=== PATIENT | male | born 1950 | race Hispanic/Latino ===

== ENCOUNTER 2017-02-10 20:20 | Emergency (ER) | payer MEDICARE ==
[2017-02-10] MEDS ORDERED: Albuterol-Ipratrop 3 mg / 0.5 (3 ml) UD ONE ×3 (20:34→22:18)
[2017-02-10] MEDS ORDERED: Aspirin 325 mg EC Tablets PO STA (20:52)
--- NOTE | 2017-02-10 20:52 | C.PDOC ---
History Of Present Illness Pt presents with over the last few days. worsening shortness of breath, productive cough. No chest pain, ,palpitatios, speaking in 2-3 word sentences. Time Seen by Provider: 02/10/17 20:49 Chief Complaint (Nursing): Shortness Of Breath History Per: Patient History/Exam Limitations: no limitations Onset/Duration Of Symptoms: Days Current Symptoms Are (Timing): Worse Initiating Event: Upper Respiratory Illness Exacerbating Factor(s): Coughing Current Respiratory Medications: See Home Med List Severity: Severe Pain Scale Rating Of: 7 Associated Symptoms: Productive Cough. denies: Fever, Chills, Sweating, Chest Pain, Bloody Cough Reports Recently: Treated By A Physician Recent travel outside of the [place]: No Additional History Per: Patient Past Medical History Reviewed: Historical Data, Nursing Documentation, Vital Signs Vital Signs: Last Vital Signs Temp 97.5 F L 02/10/17 20:23 Pulse 93 H 02/10/17 20:23 Resp 12 02/10/17 21:35 BP 185/113 H 02/10/17 20:23 Pulse Ox 93 L 02/10/17 21:35 - Medical History PMH: HTN, Hypercholesterolemia Family History: States: No Known Family Hx - Social History Hx Alcohol Use: Yes Hx Substance Use: No Review Of Systems Constitutional: Negative for: Fever, Chills Eyes: Negative for: Vision Change ENT: Negative for: Throat Pain Cardiovascular: Negative for: Chest Pain Respiratory: Positive for: Cough, Shortness of Breath, SOB with Excertion, Wheezing Gastrointestinal: Negative for: Nausea, Vomiting, Abdominal Pain Genitourinary: Negative for: Dysuria Musculoskeletal: Negative for: Back Pain Skin: Negative for: Rash, Lesions Neurological: Negative for: Weakness Psych: Negative for: Anxiety Physical Exam - Physical Exam Appears: In Acute Distress Skin: Warm, Dry Head: Normacephalic Eye(s): bilateral: Normal Inspection Oral Mucosa: Moist Lips: Normal Appearing Throat: No Erythema, No Exudate Neck: Supple Chest: Symmetrical Cardiovascular: Rhythm Regular Respiratory: Decreased Breath Sounds, No Rales, Rhonchi, Wheezing Gastrointestinal/Abdominal: Soft, No Tenderness, No Distention Back: No CVA Tenderness Male Genital: Normal Inspection Extremity: Normal ROM Extremity: Bilateral: Atraumatic Pulses: Left Dorsalis Pedis: Normal, Right Dorsalis Pedis: Normal Neurological/Psych: Oriented x3, Normal Speech, Normal Cognition Gait: Steady ED Course And Treatment - Laboratory Results Result Diagrams: 02/10/17 21:03 02/10/17 21:03 ECG: Interpreted By Me, Viewed By Me O2 Sat by Pulse Oximetry: 88 Pulse Ox Interpretation: Abnormal - Radiology CXR: Interpreted by Me, Viewed By Me CXR Interpretation: Yes: Other (cabg, ? small rll infiltrate). No: Infiltrates , Fracture, Pnemothorax Progress Note: pt had a pa& lat cxr done today, which I've revied and showed cabg, ? rll infiltrate, no effusion or pneumo. 10:16 PM Pt feels much better. Wants to go home. Not short of breath Reevaluation Time: 22:16 Reassessment Condition: Improved Critical Care Time - Critical Care Note Total Time (in mins): 30 Documented critical care: time excludes all time spent performing seperately billable procedures. Medical Decision Making Medical Decision Making: Upon provider reevaluation patient is feeling better, is medically stable, and requires no further treatment in the ED at this time. Patient will be discharged home with Rx for zithromax and albuterol. Counseling was provided and all questions were answered regarding diagnosis and need for follow up with dr watson. There is agreement to discharge plan. Return if symptoms persist or worsen. Disposition Counseled Patient/Family Regarding: Studies Performed, Diagnosis, Need For Followup, Rx Given - Disposition Referrals: Jose A Abel [Staff Provider] - Disposition: HOME/ ROUTINE Disposition Time: 20:52 Condition: FAIR Additional Instructions: Please return if symptoms recur Prescriptions: Azithromycin [Zithromax Tri-Shashank] 500 mg PO DAILY #3 tablet Instructions: Acute Bronchitis (ED) Forms: [employer] ([place]) - Clinical Impression Clinical Impression: Dyspnea, Bronchitis
[2017-02-10] MEDS: Albuterol-Ipratrop 3 mg / 0.5 (3 ml) UD IH SCH ×3 (21:00→21:55)
[2017-02-10] MEDS ORDERED: Aspirin 325 mg EC Tablets PO ONE (21:06)
[2017-02-10 21:10] LABS: BASO # 0.1 K/uL (0.0-0.2); BASO % 0.5 % (0.0-2.0); EOS # 1.1 K/uL (0.0-0.7); EOS % 11.3 % (0.0-4.0); HEMATOCRIT 46.7 % (35.0-51.0); LYMPH # 1.6 K/uL (1.0-4.3); LYMPH % 16.3 % (20.0-40.0); MEAN CELL VOLUME 88.7 fL (80.0-94.0); MEAN CORPUSCULAR HEMOGLOBIN 29.4 pg (27.0-31.0); MEAN CORPUSCULAR HGB CONC 33.2 g/dL (33.0-37.0); MEAN PLATELET VOLUME 7.9 fL (7.2-11.7); MONO # 0.8 K/uL (0.0-0.8); MONO % 8.4 % (0.0-10.0); NRBC % 0.1 % (0.0-2.0); RED CELL DISTRIBUTION WIDTH 14.2 % (11.5-14.5); WHITE BLOOD COUNT 9.9 K/uL (4.8-10.8)
[2017-02-10 21:18] LABS: ALB/GLOB RATIO 1.1 (1.0-2.1); ALKALINE PHOSPHATASE 37 U/L (38-126); ALT/SGPT 37 U/L (21-72); AST/SGOT 28 U/L (17-59); BILIRUBIN,TOTAL 0.7 mg/dL (0.2-1.3); BLOOD UREA NITROGEN 20 mg/dL (9-20); CALCIUM 8.4 mg/dl (8.6-10.4); CARBON DIOXIDE 32 mmol/L (22-30); CHLORIDE 99 mmol/L (98-107); GFR AFRICAN-AMERICAN > 60; GLUCOSE,RANDOM 173 mg/dL (75-110); SODIUM 137 mmol/L (132-148); TOTAL PROTEIN 8.2 g/dL (6.3-8.3)
[2017-02-10] MEDS ORDERED: Azithromycin 500mg/250ML NS 500 MG/250 ML BAG IVPB ONE (21:30)
[2017-02-10 21:55] LABS: ABG ALLEN TEST POS; DRAW SITE RA
[2017-02-10] MEDS ORDERED: cefTRIAXone 1 gm 1 GM/100 ML BAG IVPB ONE (22:00)
[2017-02-10] MEDS: cefTRIAXone IV 1 gm in Dextros 50 ML IVPB ONE ×2 (22:02→22:03)
[2017-02-10 22:23] LABS: RBC URINE 1 /hpf (0-3); URINE BILIRUBIN NEGATIVE (NEGATIVE); URINE BLOOD NEGATIVE (NEGATIVE); URINE COLOR Yellow (YELLOW); URINE GLUCOSE (UA) 1+ mg/dL (Normal); URINE KETONE NEGATIVE (NEGATIVE); URINE LEUKOCYTE ESTERASE NEG Leu/uL (Negative); URINE PROTEIN 2+ mg/dL (NEGATIVE); URINE UROBILINOGEN NORMAL mg/dL (0.2-1.0); WBC URINE < 1 /hpf (0-5)
[2017-02-10 23:13] VITALS: BP 111/78; PULSE 67; RESP 17; TEMP 97.9; O2SAT 99
== END 2017-02-10 23:25 | disposition home or self-care (01) ==
LOC: C.ER 20:20
DX: J40 Bronchitis, not specified as acute or chronic (principal); R06.00 Dyspnea, unspecified; I10 Essential (primary) hypertension; E78.00 Pure hypercholesterolemia, unspecified
CPT/HCPCS: 80053; 81001; 82803; 83880; 85025; 85610; 85730; 87804; 94640; 96365; 96368; 99284; J0456; J0696